=== PATIENT | male | born 1975 | race Caucasian/White ===

== ENCOUNTER → 2016-10-30 | Outpatient (CLI) | payer MEDICARE ==
[~2016-10-30] MED LIST: ALPR1TAB2 PO; GABA-305 PO; OMEP20CA81 PO; OXYC15TA PO; OXYC15TA50 PO; RISP2TAB22 PO; TIZA2TAB4 PO; VITA400C19 PO; [UNRECOGNIZED DRUG - CODE] PO
--- NOTE | 2016-10-30 11:53 | DI ---
Indication: ITS.REASON: R10.9 POSSIBLE HERNIA PROCEDURE: CT ABD/PELVIS W/O CONTRAST: Encounter: Initial Comparison: CT abdomen/pelvis dated August 13, 2012 Technique: Axial CT images were performed through the abdomen and pelvis without intravenous contrast. Coronal and sagittal two-dimensional reformats. Automated Exposure Control and Iterative Reconstruction dose reducing techniques were utilized. Findings: The lung bases are clear. The liver is diffusely fatty infiltrated without contour deforming mass. Gallbladder is surgically absent. Calcified granulomas in the left lobe of the liver. The spleen, pancreas and adrenal glands are within normal limits. The kidneys are normal. No abdominal or pelvic lymphadenopathy. Bladder is normal. No ventral or inguinal hernia identified apart from a small 2 cm fat-containing umbilical hernia which is unchanged. Prostate and rectum are unremarkable. No free fluid or evidence of a bowel obstruction. The appendix is normal. Bone windows show mild degenerative change in the spine. Unilateral right L5 spondylolysis without spondylolisthesis. Impression: 1. No acute disease process seen. No evidence of new hernia. 2. Hepatic steatosis. .
== END ==
LOC: IMA 10:34
PROVIDERS: ATTEND Internal Medicine
DX: K76.0 Fatty (change of) liver, not elsewhere classified (principal)